=== PATIENT | male | born 1975 | race Caucasian/White ===

== ENCOUNTER 2021-07-28 23:28 | Emergency (ER) | payer BC ==
[~2021-07-28] VITALS: Ht 177.8 cm; Wt 106.2 kg
--- NOTE | 2021-07-28 23:38 | ED Fall/Injury ---
General Stated Complaint: LEFT SIDE PAIN History of Present Illness Date Seen by Provider: Jul 28, 2021 Time Seen by Provider: 23:38 Initial Comments 46-year-old male presents with pain in his left ribs. He reports that he fell last night without some discomfort. That he sneezed denies significant more discomfort especially in the lateral left chest wall and anterior chest wall. Reports it hurts to take a deep breath. Patient states that he slipped on some wet stairs. He complains of shortness of breath due to the pain. Patient denies any other injury Allergies and Home Medications Allergies Coded Allergies: No Known Drug Allergies (Unverified , 07/28/21) Patient Home Medication List Home Medication List Reviewed: Yes Review of Systems Review of Systems Constitutional: No chills, No fever Ears, Nose, Mouth, Throat: no symptoms reported Respiratory: see HPI Cardiovascular: see HPI Gastrointestinal: no symptoms reported Genitourinary: no symptoms reported Musculoskeletal: see HPI Skin: no symptoms reported Psychiatric/Neurological: No Symptoms Reported Physical Exam Vital Signs Vital Signs - First Documented 07/28/21 23:30 Temp 37.3 Pulse 92 Resp 32 B/P (MAP) 184/108 (133) Pulse Ox 96 O2 Delivery Room Air Capillary Refill : Height, Weight, BMI Height: '" Weight: lbs. oz. kg; BMI Method: General Appearance: mild distress Cardiovascular: normal peripheral pulses, regular rate, rhythm Respiratory: lungs clear, normal breath sounds, other (Tenderness to palpation left lateral chest wall and anterior chest wall, no crepitus noted) Gastrointestinal: non tender, soft Extremities: normal range of motion, non-tender Neurologic/Psychiatric: alert, normal mood/affect, oriented x 3 Skin: normal color, warm/dry Progress/Results/Core Measures Results/Orders My Orders Orders - SASKIA FELTON DO Ribs/Unilateral With Chest (07/28/21 23:41) Ketorolac Injection (Toradol Injection) (07/28/21 23:41) Orphenadrine Inj (Ed Only) (Norflex Inje (07/28/21 23:41) Vital Signs/I&O 07/28/21 07/28/21 07/29/21 23:30 23:30 00:21 Temp 37.3 37.3 Pulse 92 92 Resp 32 32 B/P (MAP) 184/108 (133) 184/108 Pulse Ox 96 96 O2 Delivery Room Air Room Air Room Air Progress Progress Note : Progress Note Patient x-ray shows no acute fracture. Patient likely with a rib contusion with muscle spasm. Patient was given Toradol Norflex in the ER. I recommend topical lidocaine, Voltaren and warm moist heat. If his symptoms are not improving over the next week he should follow-up with primary care provider for recheck Diagnostic Imaging Diagonstic Imaging: Xray Plain Films/CT/US/NM/MRI: chest, other Comments No acute fracture noted Date of Exam:07/28/21 RIBS/UNILATERAL WITH CHEST INDICATION: Fall, rib pain on the left EXAMINATION: Rib series 07/28/2021 FINDINGS: 4 views of the left ribs with a frontal view of the chest There is atelectasis at the left lung base. The heart is slightly prominent. Pulmonary vasculature is normal. There is no pneumothorax. There are markers along the left lower chest likely marking the sites of pain. No adjacent displaced rib fractures appreciated. IMPRESSION: 1. Left lung base atelectasis with no displaced rib fractures appreciated. 2. Not mentioned in the body of the report, there is possible nodule in the left lung apex best seen on one of the oblique views. Follow-up is recommended. If this persists, CT imaging may be exclude a noncalcified lung nodule. Reviewed: Reviewed by Me, Reviewed/Discussed Departure Impression Primary Impression: Contusion of rib on left side Qualified Codes: S20.212A - Contusion of left front wall of thorax, initial encounter Disposition: 01 HOME, SELF-CARE Condition: Stable Departure-Patient Inst. Referrals: ISABELLA VALERIO MD (PCP) Primary Care Physician ELIAS LINCOLN MD (Family) Primary Care Physician Patient Instructions: Rib Fracture or Bruised Rib ED, Blunt Chest Trauma ED Add. Discharge Instructions: 4% topical lidocaine with menthol to affected area as directed on package. This is available in cream, gel or patches Diclofenac/Voltaren cream as directed on package Tylenol or ibuprofen every 4-6 hours as needed for pain Warm moist heat to affected area SASKIA FELTON DO Jul 28, 2021 23:38
[2021-07-28] MEDS ORDERED: ORPHENADRINE 60 MG/2 ML (NORFLEX) AMP (ED ONLY) IM STA (23:41)
[2021-07-28] MEDS ORDERED: KETOROLAC 60 MG/2 ML VIAL IM STA (23:41)
[2021-07-29 00:21] VITALS: BP 184/108
--- NOTE | 2021-07-29 00:36 | Diagnostic Imaging Report ---
INDICATION: Fall, rib pain on the left EXAMINATION: Rib series 07/28/2021 FINDINGS: 4 views of the left ribs with a frontal view of the chest There is atelectasis at the left lung base. The heart is slightly prominent. Pulmonary vasculature is normal. There is no pneumothorax. There are markers along the left lower chest likely marking the sites of pain. No adjacent displaced rib fractures appreciated. IMPRESSION: 1. Left lung base atelectasis with no displaced rib fractures appreciated. 2. Not mentioned in the body of the report, there is possible nodule in the left lung apex best seen on one of the oblique views. Follow-up is recommended. If this persists, CT imaging may be exclude a noncalcified lung nodule. Dictated by: Dictated on workstation # [id number]
== END 2021-07-29 00:21 | disposition home or self-care (01) ==
LOC: EDUNIT# 23:28 → ER FS 23:31
DX: S20.212A Contusion of left front wall of thorax, initial encounter (principal); W10.8XXA Fall (on) (from) other stairs and steps, initial encounter
CPT/HCPCS: 71101

== ENCOUNTER → 2022-01-15 | Outpatient (CLI) | payer BC ==
--- NOTE | 2022-01-15 15:34 | Diagnostic Imaging Report ---
CHEST PA/LAT (2 VIEW) Indication: Hypertension Comparison: 07/28/2021 Findings: No pulmonary mass or consolidation. There is a small amount of linear atelectasis within the lingula. No pleural effusion or pneumothorax. Normal heart size and mediastinal contours. Impression: No acute cardiopulmonary process. Dictated by: Dictated on workstation # [id number]
== END ==
LOC: CARD 14:00
PROVIDERS: ATTEND Physician Assistant
DX: I10 Essential (primary) hypertension (principal)
CPT/HCPCS: 71046; 93005

== ENCOUNTER → 2022-06-19 | Outpatient (CLI) | payer BC ==
[2022-06-19 10:55] VITALS: BP 153/95
--- NOTE | 2022-06-19 14:24 | Cardiology Stress Test Report ---
Stress Test Report Date of Procedure/Referring: Date of Procedure: Jun 19, 2022 PCP Dimas Calderon MD Admitting Physician Admitting Physician: Attending Physician: Yamile Nichols MD Indications: Palpitation Baseline Heart Rate: 72 Baseline Blood Pressure: Blood Pressure Systolic: 153 Blood Pressure Diastolic: 95 Baseline EKG: Baseline EKG: NSR Summary/Conclusion: Summary: In summary, the patient started exercising with a baseline heart rate, blood pressure and EKG mentioned above Patient was able to exercise for a total of 13 minutes on Devan protocol, METs 13.5 Maximum heart rate 170 Maximum blood pressure 197/109 Stress EKG, Minimal nondiagnostic changes Recovery EKG , Return to baseline Conclusion: 1. Good exercise tolerance for a total of 13 minutes on Devan protocol, 13.5 METs, achieving 96 percent of maximum expected heart rate 2. Minimal nondiagnostic EKG changes with exercise returned to baseline during recovery 3. No arrhythmia was noted YAMILE NICHOLS MD Jun 19, 2022 14:24
== END ==
LOC: CARD 09:03
PROVIDERS: ATTEND Internal Medicine Cardiovascular Disease
DX: R07.9 Chest pain, unspecified (principal)
CPT/HCPCS: 93017; 93306